=== PATIENT | female | born 1980 | race Two or more races ===

== ENCOUNTER 2019-11-14 14:17 | Emergency (ER) | payer MEDICAID, OTHER ==
[~2019-11-14] VITALS: Ht 167.6 cm; Wt 77.1 kg
[2019-11-14 14:23] VITALS: BP 104/83
[2019-11-14] MEDS ORDERED: IBUPROFEN 800 MG TAB PO ONE (16:45)
== END 2019-11-14 16:46 | disposition home or self-care (01) ==
LOC: ER 14:17
DX: S83.92XA Sprain of unspecified site of left knee, initial encounter (principal); S93.602A Unspecified sprain of left foot, initial encounter; Z88.5 Allergy status to narcotic agent; W10.9XXA Fall (on) (from) unspecified stairs and steps, initial encounter; Y93.89 Activity, other specified; Y92.89 Other specified places as the place of occurrence of the external cause; Y99.8 Other external cause status
CPT/HCPCS: 73562; 73610; 73630

== ENCOUNTER 2020-06-06 09:43 | Emergency (ER) | payer MEDICAID ==
[~2020-06-06] VITALS: Ht 167.6 cm; Wt 77.1 kg
[2020-06-06 09:46] VITALS: BP 112/86
[2020-06-06] MEDS ORDERED: IBUPROFEN 800 MG TAB PO ONE (10:30)
[2020-06-06] MEDS ORDERED: cefTRIAXone SOD 1,000 MG VL IM ONE (10:30)
== END 2020-06-06 11:10 | disposition home or self-care (01) ==
LOC: ER 09:43
DX: K04.7 Periapical abscess without sinus (principal); Z88.1 Allergy status to other antibiotic agents; Z88.6 Allergy status to analgesic agent
CPT/HCPCS: 96372; 99283; J0696

== ENCOUNTER 2022-02-10 09:02 | Emergency (ER) | payer MEDICAID ==
[~2022-02-10] VITALS: Ht 167.6 cm; Wt 75.0 kg
[2022-02-10 10:16] VITALS: BP 129/76
[2022-02-10 11:11] LABS: Urine Specific Gravity 1.003 (1.001-1.035)
[2022-02-10 11:12] LABS: Urine Blood TRACE /uL (Negative)
[2022-02-10] MEDS ORDERED: ACETAMINOPHEN 325 MG TAB PO ONE (11:30)
[2022-02-10] MEDS ORDERED: AZIT250T8 PO (11:36)
[2022-02-10] MEDS ORDERED: ACET-1080 PO (11:36)
== END 2022-02-10 11:44 | disposition home or self-care (01) ==
LOC: ER 09:02
DX: U07.1 COVID-19 (principal); M79.10 Myalgia, unspecified site; R07.89 Other chest pain
CPT/HCPCS: 36415; 71046; 81003; 87426; 87804; 93005

== ENCOUNTER 2022-12-07 14:18 | Emergency (ER) | payer OTHER ==
[~2022-12-07] VITALS: Ht 167.6 cm; Wt 77.2 kg
[~2022-12-07 14:18] MED LIST: ACET-1080 PO; AZIT-81 PO
[2022-12-07 16:16] VITALS: BP 145/82; PULSE 86; RESP 18; TEMP 98.7; O2SAT 97
[2022-12-07] MEDS ORDERED: CYCL-839 PO (17:19)
[2022-12-07] MEDS ORDERED: IBUP1TAB5 PO (17:20)
[2022-12-07] MEDS ORDERED: IBUPROFEN 600 MG TAB PO ONE (17:30)
== END 2022-12-07 17:39 | disposition home or self-care (01) ==
LOC: ER 14:18
DX: S16.1XXA Strain of muscle, fascia and tendon at neck level, initial encounter (principal); S29.012A Strain of muscle and tendon of back wall of thorax, initial encounter; Z88.1 Allergy status to other antibiotic agents; Z88.6 Allergy status to analgesic agent; V43.52XA Car driver injured in collision with other type car in traffic accident, initial encounter; Y93.89 Activity, other specified; Y92.488 Other paved roadways as the place of occurrence of the external cause; Y99.8 Other external cause status
CPT/HCPCS: 72040; 72070

== ENCOUNTER 2023-02-05 12:29 | Emergency (ER) | payer MEDICAID ==
[~2023-02-05] VITALS: Ht 167.6 cm; Wt 76.2 kg
[~2023-02-05 12:29] MED LIST changes: +CYCL-839 PO; +IBUP1TAB5 PO
[2023-02-05 14:43] VITALS: BP 134/85; PULSE 88; RESP 16; TEMP 97.6; O2SAT 99
[2023-02-05] MEDS ORDERED: ACETAMINOPHEN 500 MG TAB PO ONE (15:45)
[2023-02-05] MEDS ORDERED: IBUP1TAB5 PO (17:23)
[2023-02-05] MEDS ORDERED: LIDO5CRE14 EX (17:23)
== END 2023-02-05 17:46 | disposition home or self-care (01) ==
LOC: ER 12:29
DX: M54.50 Low back pain, unspecified (principal); Z88.1 Allergy status to other antibiotic agents
CPT/HCPCS: 73560; 74176